=== PATIENT | female | born 1980 ===

== ENCOUNTER 2020-02-27 00:48 | Emergency (ER) | payer OTHER ==
[2020-02-27] MEDS ORDERED: Aspirin 81 MG Tab.Chew PO ONE (01:41)
[2020-02-27] MEDS ORDERED: Nitroglycerin 0.4 MG Tab.SL SL ONE (01:42)
[2020-02-27] MEDS ORDERED: Potassium Chloride 20 MEQ Tab.ER PO ONE (02:29)
--- NOTE | 2020-02-27 02:34 | EDM.PDOC ---
ED HPI GENERAL MEDICAL PROBLEM - General Chief Complaint: Cardiovascular Problem Stated Complaint: Heart Pounding, Chest Discomfort Time Seen by Provider: 02/27/20 00:55 Source of Information: Reports: Patient History Limitations: Reports: No Limitations - History of Present Illness INITIAL COMMENTS - FREE TEXT/NARRATIVE: Patient presented to the ED because of skip beats for 10 seconds, palpitations and chest pain. Denies any nausea,vomiting, dyspnea or diaphoresis. There is no fever,chills, cough or cold symptoms. - Related Data Allergies Allergy/AdvReac Type Severity Reaction Status Date / Time Seasonal Allergy Runny Nose Uncoded 02/27/20 01:12 Home Meds: Home Meds .Flovent Disc 1 puff INH BID 02/27/20 [History] Levothyroxine 25 mcg PO Q48H 02/27/20 [History] Potassium Chloride [Klor-Con M20] 40 meq PO TID #6 tab.er.prt 02/27/20 [Rx] ED ROS GENERAL - Review of Systems Review Of Systems: See Below Constitutional: Reports: No Symptoms HEENT: Reports: No Symptoms Respiratory: Reports: No Symptoms Cardiovascular: Reports: Chest Pain Endocrine: Reports: No Symptoms GI/Abdominal: Reports: No Symptoms : Reports: No Symptoms Musculoskeletal: Reports: No Symptoms Skin: Reports: No Symptoms Neurological: Reports: No Symptoms Psychiatric: Reports: No Symptoms Hematologic/Lymphatic: Reports: No Symptoms ED EXAM, GENERAL - Physical Exam Exam: See Below Exam Limited By: No Limitations General Appearance: Alert, No Apparent Distress Ears: Normal External Exam, Normal Canal Nose: Normal Inspection, Normal Mucosa Throat/Mouth: Normal Inspection, Normal Lips, Normal Teeth Head: Atraumatic, Normocephalic Neck: Normal Inspection, Supple, Non-Tender, Full Range of Motion Respiratory/Chest: No Respiratory Distress, Lungs Clear, Normal Breath Sounds Cardiovascular: Normal Peripheral Pulses, Regular Rate, Rhythm, No Edema, No Gallop GI/Abdominal: Normal Bowel Sounds, Soft, Non-Tender Back Exam: Normal Inspection, Full Range of Motion Extremities: Normal Inspection, Normal Range of Motion, Non-Tender Neurological: Alert, Oriented, CN II-XII Intact Psychiatric: Normal Affect, Normal Mood Skin Exam: Warm, Dry, Intact Course - Vital Signs Text/Narrative:: Labs/EKG/CXR was discussed with patient ASA 324 mg po x1 NTG 0.4 mg SL x1 Klor con 20 meq, 2 tabe po x1 Last Recorded V/S: Last Vital Signs Temp 36.6 C 02/27/20 00:50 Pulse Resp BP 147/89 H 02/27/20 01:55 Pulse Ox - Orders/Labs/Meds Orders: Active Orders 24 hr Category Date Time Status EKG Documentation Completion [RC] ASDIRECTED Care 02/27/20 01:09 Active Chest 1V Frontal [CR] Stat Exams 02/27/20 01:41 Taken EKG 12 Lead [EK] Routine Ther 02/27/20 01:09 Ordered Labs: Laboratory Tests 02/27/20 02/27/20 02/27/20 Range/Units 01:25 01:25 01:25 WBC 11.5 (4.5-12.0) X10-3/uL RBC 4.24 (3.23-5.20) x10(6)uL Hgb 11.9 (11.5-15.5) g/dL Hct 37.8 (30.0-51.3) % MCV 89.1 (80-96) fL MCH 28.2 (27.7-33.6) pg MCHC 31.6 L (32.2-35.4) g/dL RDW 12.6 (11.5-15.5) % Plt Count 269 (125-369) X10(3)uL MPV 9.3 (7.4-10.4) fL Neut % (Auto) 70.7 (46-82) % Lymph % (Auto) 21.3 (13-37) % [place] % (Auto) 5.5 (4-12) % Eos % (Auto) 2 (1.0-5.0) % Baso % (Auto) 1 (0-2) % Neut # (Auto) 8.2 (1.6-8.3) # Lymph # (Auto) 2.4 (0.6-5.0) # [place] # (Auto) 0.6 (0.0-1.3) # Eos # (Auto) 0.2 (0.0-0.8) # Baso # (Auto) 0.1 (0.0-0.2) # Sodium 140 (135-145) mmol/L Potassium 3.4 L (3.5-5.3) mmol/L Chloride 101 (100-110) mmol/L Carbon Dioxide 28 (21-32) mmol/L BUN 13 (7-18) mg/dL Creatinine 0.9 (0.55-1.02) mg/dL Est Cr Clr Drug Dosing 80.12 mL/min Estimated GFR (MDRD) > 60 (>60) BUN/Creatinine Ratio 14.4 (9-20) Glucose 170 H (80-116) mg/dL Calcium 9.3 (8.6-10.2) mg/dL Total Bilirubin 0.3 (0.1-1.3) mg/dL AST 23 (5-25) IU/L ALT 37 H (12-36) U/L Alkaline Phosphatase 48 L (56-112) IU/L Troponin I < 4.0 L (4.0-60.3) pg/mL Total Protein 7.9 (6.0-8.0) g/dL Albumin 3.9 (3.5-5.2) g/dL Globulin 4.0 g/dL Albumin/Globulin Ratio 1.0 TSH, Ultra Sensitive (0.36-3.74) IU/mL 02/27/20 Range/Units 01:25 WBC (4.5-12.0) X10-3/uL RBC (3.23-5.20) x10(6)uL Hgb (11.5-15.5) g/dL Hct (30.0-51.3) % MCV (80-96) fL MCH (27.7-33.6) pg MCHC (32.2-35.4) g/dL RDW (11.5-15.5) % Plt Count (125-369) X10(3)uL MPV (7.4-10.4) fL Neut % (Auto) (46-82) % Lymph % (Auto) (13-37) % [place] % (Auto) (4-12) % Eos % (Auto) (1.0-5.0) % Baso % (Auto) (0-2) % Neut # (Auto) (1.6-8.3) # Lymph # (Auto) (0.6-5.0) # [place] # (Auto) (0.0-1.3) # Eos # (Auto) (0.0-0.8) # Baso # (Auto) (0.0-0.2) # Sodium (135-145) mmol/L Potassium (3.5-5.3) mmol/L Chloride (100-110) mmol/L Carbon Dioxide (21-32) mmol/L BUN (7-18) mg/dL Creatinine (0.55-1.02) mg/dL Est Cr Clr Drug Dosing mL/min Estimated GFR (MDRD) (>60) BUN/Creatinine Ratio (9-20) Glucose (80-116) mg/dL Calcium (8.6-10.2) mg/dL Total Bilirubin (0.1-1.3) mg/dL AST (5-25) IU/L ALT (12-36) U/L Alkaline Phosphatase (56-112) IU/L Troponin I (4.0-60.3) pg/mL Total Protein (6.0-8.0) g/dL Albumin (3.5-5.2) g/dL Globulin g/dL Albumin/Globulin Ratio TSH, Ultra Sensitive 2.40 (0.36-3.74) IU/mL Meds: Medications Discontinued Medications Generic Name Dose Route Start Last Admin Trade Name Freq PRN Reason Stop Dose Admin Aspirin 324 mg 02/27/20 01:41 02/27/20 01:50 Aspirin PO 02/27/20 01:42 324 mg ONETIME ONE Administration Nitroglycerin 0.4 mg 02/27/20 01:42 02/27/20 01:55 Nitrostat SL 02/27/20 01:43 0.4 mg ONETIME ONE Administration Potassium Chloride 40 meq 02/27/20 02:29 Klor-Con M20 PO 02/27/20 02:30 ONETIME ONE Departure - Departure Time of Disposition: 02:30 Disposition: Home, Self-Care 01 Condition: Good Clinical Impression: Atypical chest pain, Palpitations, Hypokalemia Prescriptions: Potassium Chloride [Klor-Con M20] 40 meq PO TID #6 tab.er.prt Instructions: Hypokalemia, Nonspecific Chest Pain, Adult, Palpitations, Easy-to -Read Referrals: PCP,None [Primary Care Provider] - Forms: ED Department Discharge Additional Instructions: Please read discharge instructions on palpitations, atypical chest pain and hypokalemia(low potassium) Take klor con 20 meq, 2 tablets 3 times daily for 1 day Follow up with your doctor if your skip beats keep on reoccurring so you can be hook to a holter monitor Sepsis Event Note (ED) - Focused Exam Vital Signs: Vital Signs Temp BP 02/27/20 01:55 147/89 H 02/27/20 00:50 36.6 C - My Orders Last 24 Hours: My Active Orders 02/27/20 01:09 EKG Documentation Completion [RC] ASDIRECTED EKG 12 Lead [EK] Routine 02/27/20 01:41 Chest 1V Frontal [CR] Stat - Assessment/Plan Last 24 Hours: My Active Orders 02/27/20 01:09 EKG Documentation Completion [RC] ASDIRECTED EKG 12 Lead [EK] Routine 02/27/20 01:41 Chest 1V Frontal [CR] Stat
== END 2020-02-27 03:00 | disposition home or self-care (01) ==
LOC: FB.ED 00:48
DX: R07.89 Other chest pain (principal); R00.2 Palpitations; E87.6 Hypokalemia; Z91.048 Other nonmedicinal substance allergy status; Z79.899 Other long term (current) drug therapy
CPT/HCPCS: 36415; 71045; 80053; 84443; 84484; 85025; 93005; 99285; A9270